=== PATIENT | female | born 1995 | race Caucasian/White ===

== ENCOUNTER 2025-03-31 20:08 | Emergency (ER) | payer OTHER, SELFPAY ==
--- NOTE | 2025-03-31 20:14 | ECG_ITS ---
Test Reason : SYNCOPE Blood Pressure : */* mmHG Vent. Rate : 76 BPM Atrial Rate : 76 BPM P-R Int : 150 ms QRS Dur : 86 ms QT Int : 372 ms P-R-T Axes : 49 93 7 degrees QTcB Int : 418 ms Normal sinus rhythm Rightward axis Borderline ECG No previous ECGs available Referred By: Generic ED Physician Electronically Signed By: REGINA MCGEE MD
[2025-03-31 20:15] VITALS: BP 110/60; PULSE 70; O2SAT 95; BMI 44.9
[2025-03-31 20:42] VITALS: BP 105/54; PULSE 80; RESP 16; TEMP 36.8; O2SAT 97
[2025-03-31 20:52] LABS: Basophils Percent Auto 0.1 % (0-2); Hematocrit 37.4 % (37.0-47.0); Hemoglobin 13.4 g/dl (12.0-16.0); Imm Gran Abs Auto 0.03 X10*3/uL (0.00-0.03); Imm Gran Pct Auto 0.4 % (0.0-0.4); Lymphocytes Absolute Auto 3.3 X10*3/uL (1.2-4.9); Lymphocytes Percent Auto 38.2 % (20-40); MANUAL DIFF FLAG NO; Mean Corpuscular HGB Conc 35.8 g/dl (31.0-35.0); Mean Corpuscular Hemoglobin 30.2 pg (27.0-33.0); Mean Corpuscular Volume 84.2 fL (80.0-98.0); Mean Platelet Volume 9.1 fL (9.4-12.3); Monocytes Absolute Auto 0.7 X10*3/uL (0.1-1.2); Monocytes Percent Auto 7.7 % (2-11); Neutrophils Absolute Auto 4.6 x10*3/uL (2.0-8.3); Neutrophils Percent Auto 53.6 % (45-73); Platelet Count 251 X10*3/uL (160-400); Red Blood Count 4.44 X10*6/uL (4.20-5.50); Red Cell Distribution Width 11.9 % (11.0-16.0); White Blood Count 8.5 X10*3/uL (4.8-10.8)
[2025-03-31 21:06] LABS: Alanine Aminotransferase 116 U/L (0-31); Albumin Level 4.3 g/dL (3.5-5.0); Alkaline Phosphatase 74 U/L (39-117); Anion Gap 13 (12-20); Aspartate Amino Transferase 42 U/L (5-31); Bilirubin Total 0.3 mg/dL (0.0-1.0); Blood Urea Nitrogen 12 mg/dL (9-16); Calcium 8.7 mg/dL (8.4-10.2); Carbon Dioxide 21 mmol/L (22-29); Chloride 109 mmol/L (96-108); Creatinine Clr Calc Pharmacy 109.3; Estimated Glomerular Filt Rate > 60; Glucose Random 80 mg/dL (60-115); Potassium 3.9 mmol/L (3.3-5.1); Sodium 139 mmol/L (135-145); Total Protein 7.1 g/dL (6.5-8.0)
--- NOTE | 2025-03-31 21:17 | ED_ITS ---
HPI - Syncope General Chief Complaint: Syncope Stated Complaint: syncopal episode Time Seen by Provider: 03/31/25 21:07 Source: patient and EMS Mode of arrival: EMS Limitations: no limitations History of Present Illness ED Provider: DR. Cortez HPI narrative: 30-year-old female came in from group rehab home after had 1 unwitnessed syncopal episode, patient stated that she started a new weight loss program using new medication 1 week ago patient do not know the name of the medication, patient declined chest pain or shortness of breath. No headache, no blurry vision, no weakness, no numbness, never fainted in the past, no chance of being , no rectal bleeding, no vaginal bleeding. Patient by the time is seen she wanted to go home, patient will be signing against medical advice as per her wishes. Related Data Allergies Allergy/AdvReac Type Severity Reaction Status Date / Time No Known Allergies Allergy Verified 03/31/25 20:20 Review of Systems 2 Review of Systems: All other systems are reviewed and are negative Constitutional: Reports as per HPI and Reports no additional constitutional complaints Eyes: Reports as per HPI and Reports no additional eye complaints Reports system reviewed and no additional complaints, except as documented Cardiovascular: Reports as per HPI and Reports no additional cardiovascular complaints Respiratory: Reports as per HPI and Reports no additional respiratory complaints Gastrointestinal: Reports as per HPI and Reports no additional gastrointestinal complaints Genitourinary: Reports no additional female genitourinary complaints Musculoskeletal: Reports no additional musculoskeletal complaints Skin/Breast: Reports system reviewed and no additional complaints, except as docu Psychiatric: Reports no additional psychiatric complaints Endocrine: Reports no additional endocrine complaints Hematologic/Lymphatic: Reports no additional hematologic/lymphatic complaints Allergic/Immunologic: Reports no additional allergic/immunologic complaints Reports system reviewed and no additional complaints, except as documented and Reports Abnormal speech present Physical Exam 2 Vital Signs: Vital Signs: Last Vital Signs Temp 98.2 F 03/31/25 20:42 Pulse 80 03/31/25 20:42 Resp 16 03/31/25 20:42 BP 105/54 L 03/31/25 20:42 Pulse Ox 97 03/31/25 20:42 O2 Del Method Room Air 03/31/25 20:42 BMI result Body Mass Index 44.9 Vital signs have been reviewed and appear to be correct. Blood pressure elevated. Heart rate normal. Respiratory rate normal. Temperature normal. Oxygen saturation normal. Appearance: Alert. Oriented X3. No acute distress. Head: Normal external exam. Normocephalic. Atraumatic. No [place] signs noted. No raccoon eyes noted Eyes: PERRLA. EOMI. Conjunctiva and sclera normal. Eyelids normal. ENT: TM's Normal. Pharynx normal. Uvula midline. Moist mucous membranes. No trismus noted. No drooling noted. No muffled voice noted. Neck: Normal inspection. Neck supple. FROM. No adenopathy. Thyroid Normal. No meningeal signs. No neck mass noted. CVS: Normal heart rate and rhythm. Heart sound normal. No murmurs noted. Pulses normal throughout. Respiratory: No respiratory distress. Painless inspiration. Breath sounds normal. No wheezes/rales/rhonchi noted. Chest nontender. No accessory muscle usage noted or decreased air movement noted. Abdomen: Soft and nontender. Bowel sounds normal in all 4 quadrants. No distention noted. No organomegaly noted. No visible injury noted. Back: No CVA tenderness. Full range of motion noted. Skin: Skin warm and dry. Normal skin color. Normal skin turgor. No rashes/lesions/lacerations noted. Extremities: No lower extremity edema. Extremities exhibit normal range of motion. Extremities nontender. Neuro: Oriented X 3. Cranial nerve exam: II-XII are grossly intact No motor deficit. No sensory deficit. Reflexes normal. Course Reevaluation(s) Reevaluation #1: 30-year-old female s/p syncopal episode, patient is refusing a full workup in the emergency department patient refuse having orthostatic to be checked, patient also refused to check her cardiac enzymes, UA, and status. I explained the patient the importance of full workup before leaving but patient insists to sign against medical advice and go back to the intermediate. Time: 21:20 Medical Decision Making Differential Diagnosis Differential Diagnoses: The differential diagnosis associated with the presentation includes (Cardiac event, ACS, dehydration, electrolyte derangement, hypovolemia, side-effect of weight loss medication, .) Admission/Observation Consideration of admission/observation: Escalation of care including admission/observation considered Lab Data MDM Lab Attestation statement: I reviewed the patient's lab results. 03/31/25 20:43 03/31/25 20:43 Labs: Lab Results 03/31/25 Range/Units 20:43 WBC 8.5 (4.8-10.8) X10*3/uL RBC 4.44 (4.20-5.50) X10*6/uL Hgb 13.4 (12.0-16.0) g/dl Hct 37.4 (37.0-47.0) % MCV 84.2 (80.0-98.0) fL MCH 30.2 (27.0-33.0) pg MCHC 35.8 H (31.0-35.0) g/dl RDW 11.9 (11.0-16.0) % Plt Count 251 (160-400) X10*3/uL MPV 9.1 L (9.4-12.3) fL Immature Gran % (Auto) 0.4 (0.0-0.4) % Neut % (Auto) 53.6 (45-73) % Lymph % (Auto) 38.2 (20-40) % [place] % (Auto) 7.7 (2-11) % Eos % (Auto) 0.0 (0-4) % Baso % (Auto) 0.1 (0-2) % Lymph # (Auto) 3.3 (1.2-4.9) X10*3/uL [place] # (Auto) 0.7 (0.1-1.2) X10*3/uL Eos # (Auto) 0.0 (0.0-0.4) X10*3/uL Baso # (Auto) 0.0 (0.0-0.2) X10*3/uL Abs Immat Gran (auto) 0.03 (0.00-0.03) X10*3/uL Absolute Neuts (auto) 4.6 (2.0-8.3) x10*3/uL Absolute Nucleated RBC 0.000 (0.0-0.012) X10*3/uL Nucleated RBC % (auto) 0.0 (0.0-0.2) /100WBC Sodium 139 (135-145) mmol/L Potassium 3.9 (3.3-5.1) mmol/L Chloride 109 H (96-108) mmol/L Carbon Dioxide 21 L (22-29) mmol/L Anion Gap 13 (12-20) BUN 12 (9-16) mg/dL Creatinine 0.82 (0.5-1.4) mg/dL Estim Creat Clear Calc 109.3 Estimated GFR > 60 Random Glucose 80 (60-115) mg/dL Calcium 8.7 (8.4-10.2) mg/dL Total Bilirubin 0.3 (0.0-1.0) mg/dL AST 42 H (5-31) U/L ALT 116 H (0-31) U/L Alkaline Phosphatase 74 (39-117) U/L Total Protein 7.1 (6.5-8.0) g/dL Albumin 4.3 (3.5-5.0) g/dL Discharge Plan Discharge Clinical Impression: Syncope and collapse Patient Disposition: Left Against Medical Advice Instructions: Syncope (ED) Stand Alone Forms: Against Medical Advice Print Language: [place]
--- OUTSIDE RECORDS SUMMARY | 2025-03-31 21:28 | XMS_ITS | Clinical Summary ---
Author Organization [employer] Address [address] [place] [address] Care Team Providers Care Manufacturing Electrician Name Role Phone Unavailable Primary Care Provider Unavailabl e Allergies Active Allergy Reactions Criticality Noted Date Comments Penicillins 04/16/2013 Other reaction(s): rash? Medications Vyvanse 50 MG capsule Take 50 mg by mouth in the morning. 05/22/2023 Active venlafaxine XR (Effexor XR) 150 MG 24 hr capsule 06/04/2023 Active LORazepam (Ativan) 1 MG tablet TAKE 1 TABLET BY MOUTH 3 TIMES A DAY NEEDED FOR ANXIETY- 1ST LINE 05/23/2023 Active ibuprofen 400 MG tablet TAKE 1 TABLET BY MOUTH EVERY 8 HOURS NEEDED BODY-ACHE, TOOTHACHE, HEADACHE 05/22/2023 Active valACYclovir (Valtrex) 1 g tablet Take 1,000 mg by mouth. 03/06/2017 Active [place] Thyroid 30 MG tablet Take 30 mg by mouth in the morning. 05/22/2023 Active Encounters Date Type Department Care Team Description 02/16/2025 11:00 AM EDT Office Visit [facility] [address] [place] [id number] Brianna Alonzo from Last 3 Months Social History Tobacco Use Types Packs/Day Years Used Date Smoking Tobacco: Every Day Cigarettes Smokeless Tobacco: Never Tobacco Cessation:Ready to Q uit: Not Asked; Counseling Given: Not Answered Comments Unknown Sex and Gender Information Value Date Recorded Sex Assigned at Female 06/05/2023 11:43 AM EDT Legal Sex Female 8:38 PM EDT Gender Identity Female 06/05/2023 11:43 AM EDT Sexual Orientation Bisexual 06/06/2023 9: 55 AM EDT Last Filed Vital Signs Vital Sign Reading Time Taken Comments Blood Pressure 124/64 02/16/2025 11:07 AM EDT Pulse 91 02/16/2025 11:07 AM EDT Temperature - - Respiratory Rate - - Oxygen Saturation - - Inhaled Oxygen Concentration - - Weight - - Height - - Body Mass Index - - Plan of Treatment Upcoming Encounters Date Type Department Care Team ([facility] st Contact Info) Description 08/26/2025 1:00 PM EDT Office Visit [facility] [address], [place] [phone] Brianna Alonzo [address] [place], [place] [phone] Health Maintenance Due Date Last Done Comments Depression Screening 1995 HIV Screening 1995 Lipid Panel 1995 SDOH Screening 1995 Alcohol/Substance Use Screening 2007 Family Planning (PISQ) 2010 Hepatitis C Screening 2013 Pneumococcal Vaccine: Pediatrics (0 to 5 Years) and At-Risk Patients (6 to 49) Years) (1 of 2 - PCV) 2014 Pap Smear 2016 COVID-19 Vaccine ( season) 2024 10/02/2023, 04/21/2022, 11/01/2021 Influenza Vaccine (#1) 2024 , 10/17/2020, 10/17/2020, Additional history exists Cervical Cancer Screening 2025 HPV/Cotest 2025 Dental X-Ray: Bitewings 08/04/2025 08/03/2024, 06/06 Dental Oral Exam 08/19/2025 02/16/2025, , 06/06/2023 Dental Prophylaxis 08/19/2025 02/16/2025, 0 08/03/2024, 01/21/2024, Additional history exists Tobacco Screening 02/16/2026 02/16/2025 Dental X-Ray: Full Mouth 06/07/2026 06/06/2023 DTaP/Tdap/Td Vaccines (9 - Td or Tdap) 12/26/2028 12/26/2018, 03/19/2017, 05/17/2006, Additional history exists Zoster Vaccines (1 of 2) 2045 RSV Patients and Patients Aged 60 years or older (1 - 1-dose 75+ series) 2070 Hepatitis B Vaccines Completed 03/30/1996, 03/30/1996, 1995, Additional history exists HIB Vaccines Completed 06/29/1996, 06/18, 1995, Additional history exists IPV Vaccines Completed 05/01/2000, 09/18, 06/29/1996, Additional history exists HPV Vaccines Completed 08/19/2010, 03/18, 02/01/2010 Hepatitis A Vaccines Aged Out No long er eligible based on patient's age to complete this topic Meningococcal Vaccine Aged Out No darien sariah eligible based on patient's age to complete this topic RSV under 20 months Aged Out No longe r eligible based on patient's age to complete this topic Rotavirus Vaccines Aged Out No longer eligible based on patient's age to complete this topic Procedures Procedure Name Priority Date/Time Associated Diagnosis Comments PERIODIC ORAL EVALUATION - ESTABLISHED PATIENT Routine 02/16/2025 11:00 AM EDT CASE PRESENTATION, DETAILED AND EXTENSIVE TREATMENT PLANNING Routine 02/16/2025 11:00 AM EDT ORAL HYGIENE INSTRUCTIONS Routine 02/16/2025 11:00 AM EDT PROPHYLAXIS - ADULT Routine 02/16/2025 1 1:00 AM EDT BITEWINGS - 4 RADIOGRAPHIC IMAGES Routine 08/03/2024 9:00 AM EDT INTRAORAL - COMPLETE SERIES OF RADIOGRAPHIC IMAGES Routine 06/06/2023 9:00 AM EDT Encounter for dental examination from Last 3 Months or Most Recently Relevant to Health Maintenance Insurance [facility] MEDICAID STAND ADULT
--- NOTE | 2025-03-31 21:35 | PC.NURSE ---
pt leaving AMA. She is refusing discharge vital sign assessment, pt also refusing to wait in the room for custodial staff to pick her up from the patient room so this RN is able to verify staff identity. Pt eloped. Charge nurse roberto carlos cope aware.
[2025-03-31 22:28] LABS: Lipase 25 U/L (8-78)
[2025-03-31 22:48] LABS: Troponin-I High Sensitivity < 2.7 ng/L (<3.5-17.0)
== END 2025-03-31 21:41 | disposition left against medical advice (07) ==
PROVIDERS: Emergency Provider Emergency Medicine
DX: R55 Syncope and collapse (principal); R94.31 Abnormal electrocardiogram [ECG] [EKG]; Z79.899 Other long term (current) drug therapy
CPT/HCPCS: 36415; 80053; 83690; 84484; 85025; 93005; 99283; 99284

== ENCOUNTER → 2025-03-31 20:14 | Outpatient (BNV) | payer OTHER, SELFPAY | PROVIDERS: Emergency Provider Emergency Medicine; Visit Provider Internal Medicine Cardiovascular Disease | DX: R55 Syncope and collapse (principal) | CPT/HCPCS: 93010 ==